=== PATIENT | female | born 1990 | race Caucasian/White ===

== ENCOUNTER 2020-09-18 13:04 | Emergency (ER) | payer MEDICAID ==
[~2020-09-18] VITALS: Ht 170.2 cm; Wt 91.1 kg
[2020-09-18 13:29] VITALS: BP 134/77
[2020-09-18] MEDS ORDERED: ACYC-202 PO (15:23)
== END 2020-09-18 15:34 | disposition home or self-care (01) ==
LOC: ER 13:05
DX: B02.9 Zoster without complications (principal); R11.0 Nausea; K30 Functional dyspepsia; Z79.2 Long term (current) use of antibiotics
CPT/HCPCS: 99283